=== PATIENT | male | born 1945 | race Two or more races ===

== ENCOUNTER 2023-05-13 16:28 | Emergency (ER) | payer OTHER ==
[~2023-05-13] VITALS: Ht 160 cm; Wt 66.0 kg
[2023-05-13 16:41] VITALS: BP 131/91; PULSE 79; RESP 18; O2SAT 100
== END 2023-05-13 20:13 | disposition left against medical advice (07) ==
LOC: ER 16:28
DX: M54.50 Low back pain, unspecified (principal); Z53.21 Procedure and treatment not carried out due to patient leaving prior to being seen by health care provider